=== PATIENT | female | born 1980 | race Caucasian/White ===

== ENCOUNTER 2020-07-17 16:00 | Outpatient (CLI) | payer BC | END 2020-07-17 16:01 | disposition home or self-care (01) | LOC: CSHLAB 16:00 | PROVIDERS: ATTEND Obstetrics & Gynecology | DX: Z01.812 Encounter for preprocedural laboratory examination (principal); Z20.822 Contact with and (suspected) exposure to COVID-19; Z15.01 Genetic susceptibility to malignant neoplasm of breast | CPT/HCPCS: 84703; 85027; 86850; 86900; 86901; 87635; U0003; U0005 ==

== ENCOUNTER 2020-07-22 06:05 | Day surgery (SDC) | payer BC ==
[2020-07-17 16:45] LABS: Hemoglobin 12.6 g/dL (12.0-15.5); Mean Corpuscular HGB CONC 32.7 g/dL (32.0-36.0); Mean Corpuscular Hemoglobin 30.4 pg (27.0-33.0); Mean Corpuscular Volume 92.8 fl (81.6-98.3); Mean Platelet Volume 10.4 fl (7.4-10.4); Platelet Count 307 10x3/uL (150-450); RBC Distribution Width 13.1 % (11.5-14.5); Red Blood Cell (RBC) Count 4.15 10x6/uL (3.90-5.03); White Blood Cell (WBC) Count 6.1 10x3/uL (3.5-10.5)
[2020-07-17 16:49] LABS: BHCG - Serum Negative (NEGATIVE); Pregs Control Background? CLEAR/WHITE (CLR/WHITE); Pregs Control Bar Appear? YES (CONTROL BAR)
[2020-07-18 01:50] LABS: SARS-CoV-2 PCR by NAA Not Detected (NotDetected)
[2020-07-21 14:57] VITALS: BMI 31.2
[2020-07-22] MEDS ORDERED: Gabapentin 300 MG CAP ONE (06:15)
[2020-07-22] MEDS ORDERED: CeleCOXIB 100 MG CAP ONE (06:16)
[2020-07-22] MEDS ORDERED: Famotidine/PF 20 mg/2ml Vial ONE (06:16)
[2020-07-22] MEDS ORDERED: Lidocaine 1% MPF 2 ML VIAL ONE (06:17)
[2020-07-22] MEDS ORDERED: Bupivacaine PF 0.5% 30 ML VIAL ONE (06:51)
[2020-07-22] MEDS ORDERED: EPINEPHrine 1 MG/ML AMP ONE (06:51)
[2020-07-22] MEDS ORDERED: Methylene Blue 50 MG/10 ML AMPUL ONE (06:59)
[2020-07-22] MEDS ORDERED: PROPOFOL 20 ML ONE (07:15)
[2020-07-22] MEDS ORDERED: Midazolam HCl 2 mg/2 ml Vial ONE (07:15)
[2020-07-22] MEDS ORDERED: Fentanyl 100 MCG/2 ML VIAL ONE ×2 (07:15→10:19)
[2020-07-22] MEDS ORDERED: Rocuronium Bromide 10 MG/ML (10ML VIAL) ONE (07:19)
[2020-07-22] MEDS ORDERED: Ondansetron PF 4 MG/2 ML Vial ONE (07:26)
[2020-07-22] MEDS ORDERED: Dexamethasone 20 MG/5 ML VIAL ONE (07:27)
[2020-07-22] MEDS ORDERED: Ketorolac Tromethamine 30 MG/ML VIAL ONE (08:03)
[2020-07-22] MEDS ORDERED: Glycopyrrolate 0.2 MG/ML 5 ML SYRINGE ONE (09:13)
[2020-07-22] MEDS ORDERED: Ropivacaine 0.2% 550 ML 750 ML NERVE BLCK SCH (09:30)
== END 2020-07-22 14:45 | disposition home or self-care (01) ==
LOC: CSHSDC 06:05
PROVIDERS: ATTEND Obstetrics & Gynecology
PROC: 0UT24ZZ Resection of Bilateral Ovaries, Percutaneous Endoscopic Approach (ICD-10-PCS; principal; 2020-07-22)
PROC: 0UT74ZZ Resection of Bilateral Fallopian Tubes, Percutaneous Endoscopic Approach (ICD-10-PCS; principal; 2020-07-22)
PROC: 0UT94ZZ Resection of Uterus, Percutaneous Endoscopic Approach (ICD-10-PCS; principal; 2020-07-22)
DX: Z40.02 Encounter for prophylactic removal of ovary(s) (principal); N73.6 Female pelvic peritoneal adhesions (postinfective); E66.9 Obesity, unspecified; Z68.31 Body mass index [BMI] 31.0-31.9, adult; Z15.01 Genetic susceptibility to malignant neoplasm of breast; Z80.3 Family history of malignant neoplasm of breast; Z88.0 Allergy status to penicillin; Z88.1 Allergy status to other antibiotic agents; Z20.822 Contact with and (suspected) exposure to COVID-19
CPT/HCPCS: 84703; 85027; 86850; 86900; 86901; 87635; 88307; A4306; J0171; J0690; J1100; J1885; J2250; J2405; J2704; J2795; J3010; Q9968; S0020; S0028; U0003; U0005

== ENCOUNTER 2021-06-05 12:36 | Outpatient (CLI) | payer BC | END 2021-06-05 12:37 | disposition home or self-care (01) | LOC: CSHULT 12:36 | PROVIDERS: ATTEND Obstetrics & Gynecology | DX: N63.20 Unspecified lump in the left breast, unspecified quadrant (principal) ==